=== PATIENT | female | born 1965 | race Caucasian/White ===

== ENCOUNTER 2018-12-21 09:25 | Emergency (ER) | payer SELFPAY ==
[2018-12-21 10:07] VITALS: BP 127/76
--- NOTE | 2018-12-21 11:22 | UC ---
Back Pain HPI - HPI Summary HPI Summary: 53 y/o female presents to the urgent care c/o PT c/o sore lower back muscles, bilat but today on the R side. Pt states this started on 12/08 after 2 difficult transfers - pt is a home health aid. - History of Current Complaint Chief Complaint: UCBackPain Stated Complaint: BACK INJURY Time Seen by Provider: 12/21/18 10:53 Hx Obtained From: Patient Hx Last Menstrual Period: 3 years ago ?: No - Menopausal Onset/Duration: Gradual Onset, Lasting Days - 13 days, Still Present, Worse Since - last night Timing: Intermittent, Lasting Minutes Severity Initially: Moderate Severity Currently: Moderate Pain Intensity: 6 Pain Scale Used: 0-10 Numeric Back Pain: Is Discrete @ - RT side of lower back Character: Sharp - w/ certain movements, Spasmodic Aggravating Factor(s): Movement, Lifting, Bending Alleviating Factor(s): Rest, OTC Meds - took 1 tab of Aleve last night Associated Signs And Symptoms: Positive: Negative. 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 she felt pain in her lower back - Risk Factors AAA Risk Factors: Negative TAD Risk Factors: Negative Cauda Equina Risk Factors: Negative Epidural Abscess Risk Factors: Negative - Allergies/Home Medications Allergies/Adverse Reactions: Allergies Allergy/AdvReac Type Severity Reaction Status Date / Time No Known Allergies Allergy Verified 12/21/18 10:00 PMH/Surg Hx/FS Hx/Imm Hx Previously Healthy: Yes Other Endocrine History: Gilbert disease - Surgical History Surgical History: Yes Surgery Procedure, Year, and Place: , 1994 1995; Cleft Palate Repairs - with revisions - Family History Known Family History: Positive: Hypertension Family History: Cancer - Social History Alcohol Use: None Substance Use Type: None Smoking Status (MU): Never Smoked Tobacco - Immunization History Most Recent Influenza Vaccination: Not the Season Physical Exam Vital Signs: Initial Vital Signs Temp 97.5 F 12/21/18 10:01 Pulse 64 12/21/18 10:01 Resp 16 12/21/18 10:01 BP 127/76 12/21/18 10:01 Pulse Ox 100 12/21/18 10:01 Back Pain Course/Dx - Course Course Of Treatment: Lumboscaral X-ray ordered, Impression: No radiographic evidence for traumatic injury. #. Mild degenerative spondylosis and facet joint osteoarthritis. - Differential Dx/Diagnosis Differential Diagnosis/HQI/PQRI: Arthritis, Compressive Cord Syndrome, Herniated Disc, Renal Colic Provider Diagnosis: Acute back pain, Back strain, Spondylolysis of lumbar region, Osteoarthritis of lumbar spine Discharge - Sign-Out/Discharge Documenting (check all that apply): Patient Departure - d/c home All imaging exams completed and their final reports reviewed: Yes - Discharge Plan Condition: Stable Disposition: HOME Prescriptions: Cyclobenzaprine TAB* [Flexeril 10 MG TAB*] 10 mg PO TID PRN #30 tab PRN Reason: Spasms - Back Ibuprofen TAB* [Motrin TAB* 600 MG] 600 mg PO Q6H PRN #30 tab PRN Reason: back pain Patient Education Materials: Low Back Strain (ED), Degenerative Disc Disease ( ED) Forms: *Work Release Referrals: Dariel Botello MD [Primary Care Provider] - 3 Days Kiersten Adan Ae RN [Registered Nurse] - 3 Days Additional Instructions: 1- Please take Ibuprofen q6-8hrs prn PO as directed after meals for pain. Medrol dose fernando as directed to alleviate symptoms 2- Take Flexeril PO as directed for muscle spasm. Please do not drive while taking the medication. 3- Avoid strenuous exercise or heavy lifting. Wear a back support 4- Please call Spinal Nurse Navigator: Cyndie Adan: [phone] for further management of your Spondylolysis and Degenerative disc disease - Billing Disposition and Condition Condition: STABLE Disposition: Home
[2018-12-21] MEDS: Ibuprofen TAB* 600 MG PO ONE (12:18)
== END 2018-12-21 13:29 | disposition home or self-care (01) ==
LOC: UCEAST 09:25
DX: S39.012A Strain of muscle, fascia and tendon of lower back, initial encounter (principal); M54.5 Low back pain; M47.896 Other spondylosis, lumbar region; X58.XXXA Exposure to other specified factors, initial encounter; Y92.9 Unspecified place or not applicable
CPT/HCPCS: 72110; 99212; A9270-GY; G0463

== ENCOUNTER 2019-03-14 23:41 | Emergency (ER) | payer BC ==
--- NOTE | 2019-03-15 00:30 | ED ---
Palpitations / Dysrhythmia - HPI Summary HPI Summary: Pt is a 53 y/o F presenting to the ED with a chief complaint of palpitations initially onset 1 week ago. She states that she recently visited her system administration advisor who stated her heart function levels were normal but on the low side, which sent her into erratic anxiety. She reports some shakiness, palpitations that have since resolved, and feeling like it is difficult to form words. She denies CP, SOB, LE edema, or rash. - History of Current Complaint Chief Complaint: EDDysrhythmPalp Time Seen by Provider: 03/15/19 00:13 Hx Obtained From: Patient Onset/Duration: Sudden Onset, Lasting Days, Still Present Timing: Constant Severity Initially: Mild Severity Currently: Mild Character: Pounding Aggravating: Other - stress Alleviating: Nothing Associated Signs & Symptoms: Negative - Allergy/Home Medications Allergies/Adverse Reactions: Allergies Allergy/AdvReac Type Severity Reaction Status Date / Time No Known Allergies Allergy Verified 03/14/19 23:45 PMH/Surg Hx/FS Hx/Imm Hx Previously Healthy: Yes Endocrine/Hematology History: Reports: Hx Thyroid Disease - "sluggish" Denies: Hx Diabetes Cardiovascular History: Reports: Other Cardiovascular Problems/Disorders - ANXIETY, PANIC ATTACKS, LEFT BUNDLE BRANCH BLOCK Denies: Hx Hypertension Respiratory History: Denies: Hx Asthma, Hx Chronic Obstructive Pulmonary Disease (COPD) GI History: Denies: Hx Ulcer - Cancer History Hx Chemotherapy: No Hx Radiation Therapy: No - Surgical History Surgery Procedure, Year, and Place: , 1994 1995; Cleft Palate Repairs - with revisions Infectious Disease History: No Infectious Disease History: Denies: Hx Hepatitis, Hx Human Immunodeficiency Virus (HIV), Traveled Outside the [place] in Last 30 Days - Family History Known Family History: Positive: Hypertension Family History: Cancer - Social History Alcohol Use: None Hx Substance Use: No Substance Use Type: Reports: None Hx Tobacco Use: No Smoking Status (MU): Never Smoked Tobacco Review of Systems Positive: Palpitations. Negative: Chest Pain Negative: Shortness Of Breath Positive: Other - shakiness. Negative: Edema Negative: Rash Neurological: Other - difficult to form words Positive: Anxious All Other Systems Reviewed And Are Negative: Yes Physical Exam - Summary Physical Exam Summary: Constitutional: Well-developed, Well-nourished, Alert. (-) Distressed Skin: Warm, Dry HENT: Normocephalic; Atraumatic Eyes: Conjunctiva normal Neck: Musculoskeletal ROM normal neck. (-) JVD, (-) Stridor, (-) Tracheal deviation Cardio: Rhythm regular, rate normal, Heart sounds normal; Intact distal pulses; The pedal pulses are 2+ and symmetric. Radial pulses are 2+ and symmetric. Pulmonary/Chest wall: Effort normal. (-) Respiratory distress, (-) Wheezes, (-) Rales Abd: Soft, (-) tenderness, (-) Distension, (-) Guarding, (-) Rebound Musculoskeletal: (-) Edema Neuro: Alert, Oriented x3 Psych: Mood and affect Normal Triage Information Reviewed: Yes Vital Signs On Initial Exam: Initial Vitals Temp Pulse Resp BP Pulse Ox 98.7 F 59 16 164/89 100 03/14/19 23:43 03/14/19 23:43 03/14/19 23:43 03/14/19 23:43 03/14/19 23:43 Vital Signs Reviewed: Yes Diagnostics - Vital Signs Vital Signs Temp Pulse Resp BP Pulse Ox 03/14/19 23:43 98.7 F 59 16 164/89 100 - Laboratory Result Diagrams: 03/15/19 00:56 Lab Statement: Any lab studies that have been ordered have been reviewed, and results considered in the medical decision making process. - EKG 2348 Cardiac Rate: Bradycardia - 59bpm EKG Rhythm: Sinus Bradycardia ST Segment: Non-Specific Ectopy: None Summary of EKG Findings: EKG at 2348 shows sinus bradycardia at 59bpm with old LBBB and old nonspecific T wave abnormalities. Negative Scarbossa. Course/Dx - Course Course Of Treatment: Pt is a 53 y/o F presenting to the ED with a chief complaint of palpitations initially onset 1 week ago. She states that she recently visited her system administration advisor who stated her heart function levels were normal but on the low side, which sent her into erratic anxiety. She reports some shakiness, palpitations that have resolved, and feeling like it is difficult to form words. She denies CP, SOB, LE edema, or rash. EKG at 2348 shows sinus bradycardia at 59bpm with old LBBB and old nonspecific T wave abnormalities. Negative Scarbossa. Pt's lab results are WNL. She will be d/c' ed with dx including anxiety and palpitations which resolved FAMILY NURSE. - Diagnoses Provider Diagnoses: Anxiety, Palpitations Discharge - Sign-Out/Discharge Documenting (check all that apply): Patient Departure Patient Received Moderate/Deep Sedation with Procedure: No - Discharge Plan Condition: Stable Disposition: HOME Patient Education Materials: Heart Palpitations (ED), Anxiety (ED) Referrals: Kiesrten Mcarthur MD [Primary Care Provider] - - Billing Disposition and Condition Condition: STABLE Disposition: Home - Attestation Statements Document Initiated by Scribe: Yes Documenting Scribe: Rose Garcia Provider For Whom Scribe is Documenting (Include Credential): Asim Kirk MD. Scribe Attestation: Rose Gilmore scribed for Asim Kirk MD. on 03/15/19 at 0508. Scribe Documentation Reviewed: Yes Provider Attestation: The documentation as recorded by the scribe, Rose Garcia accurately reflects the service I personally performed and the decisions made by me, Asim Kirk MD. Status of Scribe Document: Viewed
[2019-03-15 01:22] LABS: BUN/Creatinine Ratio 22.9 (8-20); Calcium 9.7 mg/dL (8.6-10.3); EGFR African American 87.7 (>60); EGFR Non-African American 72.5 (>60); Potassium 3.5 mmol/L (3.5-5.0)
[2019-03-15 02:16] VITALS: BP 122/73
== END 2019-03-15 01:52 | disposition home or self-care (01) ==
LOC: ED 23:41
DX: F41.9 Anxiety disorder, unspecified (principal); R00.2 Palpitations; R00.1 Bradycardia, unspecified; I44.7 Left bundle-branch block, unspecified
CPT/HCPCS: 36415; 80048; 83735; 84484; 93005; 99283

== ENCOUNTER 2019-09-08 07:54 | Emergency (ER) | payer BC ==
--- OUTSIDE RECORDS SUMMARY | 2019-09-08 08:00 | XMS REPORT | Continuity of Care Document ---
:1965 External Reference #:[id number] Author Problems Active Problems Provider Date Bundle branch block Onset: 03/25/2019 Left bundle branch block Martin Darden MD Onset: 07/17/2019 Syncope Martin Darden MD Onset: 07/17/2019 Cleft palate Onset: 03/25/2019 Irregular sleep-wake pattern Martin Darden MD Onset: 07/17/2019 Note: Neg sleep study Apr 2019 Gilbert's syndrome Martin Darden MD Onset: 07/17/2019 Anxiety Martin Darden MD Onset: 07/17/2019 Previous cleft palate repair Martin Darden MD Onset: 07/17/2019 Benign essential hypertension Martin Darden MD Onset: 07/17/2019 Palpitations Martin Darden MD Onset: 07/21/2019 Inactive Problems Allergic disposition Onset: 03/25/2019 Inactive: 03/25/2019 Anxiety Onset: 03/25/2019 Inactive: 03/25/2019 Social History Type Date Description Comments Sex Unknown Allergies, Adverse Reactions, Alerts Description No Information Available Medications Active Medications SIG Qnty Indications Ordering Provider Date Doxycycline Hyclate 2 tabs by mouth 2caps R21 SAFIA Osorio 05/26/2019 100mg twice a day once Capsules Lisinopril 1/2 tab by Unknown 2.5mg Tablets mouth every day Immunizations CPT Code Status Date Vaccine Lot # [id number] Given 05/26/2019 Flu < 65 years [id number] Vital Signs Date Vital Result Comment 05/26/2019 9:49am BP Systolic 132 mmHg BP Diastolic 78 mmHg Weight 123.00 lb Heart Rate 62 /min Body Temperature 97.9 F O2 % BldC Oximetry 98 % 03/25/2019 10:46am BP Systolic 110 mmHg Height 60.25 inches 5'0.25" Weight 129.00 lb Heart Rate 64 /min Body Temperature 98.1 F O2 % BldC Oximetry 98 % BMI (Body Mass Index) 24.98 kg/m2 Results Test Acquired Date Facility Test Result H/L Range Note Laboratory test 08/17/2019 [facility] Cytology SEE RESULT [address] [place] [address] [phone] Anion Gap 03/15/2019 N2N/CCD Import Anion Gap 8 mmol/L 2-11 mmol/L BUN 03/15/2019 N2N/[facility]D Import BUN 19 mg/dL 6-24 mg/dL BUN/Creat Ratio 03/15/2019 N2N/CCD Import BUN/Creat Ratio 22.9 _ High 8- 20 Calcium 03/15/2019 N2N/CCD Import Calcium 9.7 mg/dL 8.6-10.3 mg/dL Chloride 03/15/2019 N2N/CCD Import Chloride 108 mmol/L 101-111 mmol/L Co2 03/15/2019 N2N/CCD Import Co2 24 mmol/L 22-32 mmol/L Creatinine 03/15/2019 N2N/CCD Import Creatinine 0.83 mg/dL 0.51-0.95 mg/dL GFR Afr Amer 03/15/2019 N2N/CCD Import GFR Afr Amer 87.7 _ >60 GFR Non Afr 03/15/2019 N2N/CCD Import GFR Non Afr 72.5 _ >60 Amer Amer Glucose 03/15/2019 N2N/CCD Import Glucose 108 mg/dL High 70-100 mg/dL Magnesium 03/15/2019 N2N/CCD Import Magnesium 2.0 mg/dL 1.9-2.7 mg/dL Potassium 03/15/2019 N2N/CCD Import Potassium 3.5 mmol/L 3.5-5.0 mmol/L Sodium 03/15/2019 N2N/CCD Import Sodium 140 mmol/L 135-145 mmol/L Troponin 03/15/2019 N2N/CCD Import Troponin 0.00 ng/mL <0.04 ng/mL 1 SEE RESULT BELOW Name: CELIA BOURGEOIS : [address]: Jennyfer Larsen MD Acct: [id number] Unit: [id number] AGE: 54 Location: [facility] Re08/17/19 SEX: F Status: REG REF SPEC: [id number] KEISHA: 08/17/19-134 [facility] DR: Jennyfer Larsen MD REQ: [id number] RECD: 08/17/19 STATUS: LI MON DR: Kiersten Mcarthur MD _ ORDERED: TP IMAGE ANALYS, HPV/Thin Prep COMMENTS: [id number] FINAL DIAGNOSIS Negative for Intraepithelial lesion or Malignancy HPV RESULTS Date Time Test Result Flag (u) Normal Range 08/17/19 1344 HPV MEENU Negative Negative The high-risk HPV types detected by the assay include: 16, 18, 31, 33, 35, 39, 45, 51, 52, 56, 58, 59, 66, and 68. SPECIMEN(S) RECEIVED A. Ectocervical/Endocervical CYTOLOGY ADEQUACY Specimen Adequacy: Satisfactory of evaluation Transformation zone component not identified CONTINUED ON NEXT PAGE DEPARTMENT OF PATHOLOGY, [address] [place] [address] Mahesh Luna M.D. Director [facility] # [id number] CYTOLOGY PATIENT INFORMATION Patient Information: HPV: High risk HPV RNA testing regardless of pap results. Actual Specimen Date: 08/17/19 LMP If Unknown: 2015 Date of Last Specimen: 10/09/17 ?: Y Signed by and Reported on: LAUREN Pierce(ASCP) [id number] This Pap test was evaluated with the assistance of the ShoutEmPrep Test Imaging System. Due to cytologic findings at the housing grant analyst microscope, comprehensive manual rescreening by a [employer] may be required. The Pap Smear is a screening test designed to aid in the detection of premalignant and malignant conditions of the uterine cervix. It is not a diagnostic procedure and should not be used as the sole means of detecting cervical cancer. Both false- positive and false- negative reports do occur. Depending on your risk status, a Pap smear should be obtained and evaluated every 1-3 years. END OF REPORT DEPARTMENT OF PATHOLOGY, [address] [place] [address] Mahesh Luna M.D. Director [facility] # [id number] Procedures Date Code Description Status 03/25/2019 98788 Brief Emotional/Behav Assessment W/ Scoring Doc Per Completed Standard Inst Medical Devices Description No Information Available Encounters Type Date Location Provider Dx Diagnosis Office Visit 05/26/2019 10:15a [facility] SAFIA Osorio R21 Rash and other nonspecific skin eruption S20.462A Insect bite (nonvenomous) of left back wall of thorax, init Z23 Encounter for immunization Assessments Date Code Description Provider 05/26/2019 R21 Rash and other nonspecific skin eruption SAFIA Osorio 05/26/2019 S20.462A Insect bite (nonvenomous) of left back wall of SAFIA Osorio thorax, initial encounter 05/26/2019 Z23 Encounter for immunization SAIFA Osorio Plan of Treatment No Information Available Functional Status Description No Information Available Mental Status Description No Information Available Referrals Description No Information Available
--- OUTSIDE RECORDS SUMMARY | 2019-09-08 08:00 | XMS REPORT | Continuity of Care Document ---
:1965 External Reference #:[id number] Author Name Lorena Loza DNP, RN, PRINTED CIRCUIT BOARD PCB DESIGNER-BC (transmitted by agent of provider Eli Peace) Address [address], [address] [place] [address] Care Team Providers Name Role Phone Kiersten Mcarthur M.D. - Family Care Team Information Product Blending Supervisor Medicine Problems Active Problems Provider Date Left bundle branch block Jerel Alcala M.D. Onset: 04/14/2013 Syncope and collapse Jerel Alcala M.D. Onset: 04/14/2013 Sinus node dysfunction Jerel Alcala M.D. Onset: 04/14/2013 Social History Type Date Description Comments Sex Unknown Tobacco Use Start: Unknown Never Smoked Cigarettes ETOH Use Denies alcohol use Recreational Drug Use Denies Drug Use Tobacco Use Start: Unknown Patient has never smoked Smoking Status Reviewed: 08/05/19 Patient has never smoked Exercise Type/Frequency Exercises regularly 3-4 times a week, walking 1 mile Allergies, Adverse Reactions, Alerts Description No Known Drug Allergies Medications Active Medications SIG Qnty Indications Ordering Provider Date Vitamin D High once a day 90caps Other Ordering 08/04/2019 Potency Provider 25mcg (1000 Ut) Capsules Lisinopril 1/2 tablet by 90tabs I42.9 Madeline Condon NP 04/22/2019 2.5mg mouth every day Tablets [place]-3 Fish Oil take 1 tab by Unknown 03/20/2019 1000mg mouth daily. Capsules History Medications Zolpidem Tartrate 1 tab by mouth 1tabs Lorena Loza, 06/15/2019 - 5mg night of study ZENY MOREIRA, PR[employer]ED [employer] PCB DESIGNER-BC 08/04/2019 Tablets for inability to sleep Womens Multivitamin 1 tab by mouth Unknown 04/11/2019 - daily 08/04/2019 Tablets Lisinopril 1/2 tablet by 30tabs I42.9 Madeline Condon NP 03/21/2019 - 2.5mg mouth every 05/02/2019 Tablets Thursday, and Thursday ( 3 times a week) Immunizations Description No Information Available Vital Signs Date Vital Result Comment 08/05/2019 9:32am Height 60 inches 5'0" Weight 124.00 lb Heart Rate 61 /min BP Systolic 120 mmHg BP Diastolic 70 mmHg O2 % BldC Oximetry 98 % BMI (Body Mass Index) 24.2 kg/m2 05/20/2019 2:55pm Height 60 inches 5'0" Weight 123.25 lb Heart Rate 68 /min BP Systolic Sitting 122 mmHg LA, reg BP Diastolic Sitting 68 mmHg LA, reg BP Systolic Standing 118 mmHg LA< reg BP Diastolic Standing 68 mmHg LA< reg BMI (Body Mass Index) 24.1 kg/m2 Ejection Fraction 50%-55% 02/25/19 echo Results Test Acquired Date Facility Test Result H/L Range Note Basic Metabolic 04/20/2019 [facility] Sodium 142 mmol/L Normal 135-145 Panel [address] [place] [address] [phone] Potassium 4.0 mmol/L Normal 3.5-5.0 Chloride 108 mmol/L Normal 101-111 Co2 Carbon Dioxide 30 mmol/L Normal 22-32 Anion Gap 4 mmol/L Normal 2-11 Glucose 86 mg/dL Normal 70-100 Blood Urea Nitrogen 16 mg/dL Normal 6-24 Creatinine 0.73 mg/dL Normal 0.51-0.95 BUN/Creatinine Ratio 21.9 High 8-20 Calcium 9.5 mg/dL Normal 8.6-10.3 Egfr Non- 83.7 >60 Egfr 101.3 >60 1 1 Because ethnic data is not always readily available, this report includes an eGFR for both -Americans and non- Americans. The National Kidney Disease Education Program (NKDEP) does not endorse the use of the MDRD equation for patients that are not between the ages of 18 and 70, are , have extremes of body size, muscle mass, or nutritional status, or are non- or non-. According to the National Kidney Foundation, irrespective of diagnosis, the stage of the disease is based on the level of kidney function: Stage Description GFR(mL/min/1.73 m(2)) 1 Kidney damage with normal or decreased GFR 90 2 Kidney damage with mild decrease in GFR 60-89 3 Moderate decrease in GFR 30-59 4 Severe decrease in GFR 15-29 5 Kidney failure <15 (or dialysis) Procedures Date Code Description Status 07/21/2019 99170 Polysomnography Sleep Staging 4+ Parameters Completed 05/20/2019 13766 Sleep Study Unattended,HRT Rate,Oxygen Sat,Resp Completed Effort/Airflow 03/21/2019 68282 Holter Monitor Review (24 hr)dr guzman & interp only Completed 03/16/2019 06038 ECG Monitor/Recording W/Visual Superimposition Scanning Completed 02/25/2019 79684 ECHO Transthoracic, Real-Time 2D With Doppler And Color Completed Flow 02/25/2019 34574 ECHO Transthoracic, Real-Time 2D With Doppler And Color Completed Flow Medical Devices Description No Information Available Encounters Type Date Location Provider Dx Diagnosis Office Visit 05/20/2019 [facility] Madeline Condon NP I10 Essential (primary) 3:00p hypertension I42.9 Cardiomyopathy, unspecified I27.20 Pulmonary hypertension, unspecified Office Visit 05/13/2019 2:30p [facility] G47.9 Sleep disorder, [facility] unspecified Financial Services Representative R53.83 Other fatigue Office Visit 04/22/2019 1:00p [facility] Madeline Condon, I10 Essential (primary) Of Financial Services Representative HOT HEAD MACHINE OPERATOR hypertension I42.9 Cardiomyopathy, unspecified I36.1 Nonrheumatic tricuspid (valve) insufficiency I27.20 Pulmonary hypertension, unspecified Office Visit 04/11/2019 8:30a [facility] Nurse Visit I10 Essential (primary) cc hypertension Office Visit 03/21/2019 2:30p [facility] Madeline I36.1 Nonrheumatic JOSE Condon tricuspid (valve) insufficiency I42.9 Cardiomyopathy, unspecified I34.0 Nonrheumatic mitral (valve) insufficiency I44.7 Left bundle-branch block, unspecified Assessments Date Code Description Provider 08/05/2019 G47.33 Obstructive sleep apnea (adult) Lorena Loza DNP, RN, (pediatric) [facility] 08/05/2019 R53.83 Other fatigue Lorena Loza DNP RN, [facility] 08/05/2019 G47.01 Insomnia due to medical condition Lorena Loza DNP, RN , [facility] 07/21/2019 G47.33 Obstructive sleep apnea (adult) Jeimy Fine MD (pediatric) 05/20/2019 R06.83 Snoring Jeimy Fine MD 05/20/2019 I10 Essential (primary) hypertension Madeline Thuman, HOT HEAD MACHINE OPERATOR 05/20/2019 I42.9 Cardiomyopathy, unspecified Madelien Thuman, HOT HEAD MACHINE OPERATOR 05/20/2019 I27.20 Pulmonary hypertension, unspecified Madeline Thuman, HOT HEAD MACHINE OPERATOR 05/13/2019 G47.9 Sleep disorder, unspecified Jeimy Fine MD 05/13/2019 R53.83 Other fatigue Jeimy Fine MD 04/22/2019 I10 Essential (primary) hypertension Madeline Thuman, HOT HEAD MACHINE OPERATOR 04/22/2019 I42.9 Cardiomyopathy, unspecified Madeline Thuman, HOT HEAD MACHINE OPERATOR 04/22/2019 I36.1 Nonrheumatic tricuspid (valve) Madeline Thuman, HOT HEAD MACHINE OPERATOR insufficiency 04/22/2019 I27.20 Pulmonary hypertension, unspecified Madeline Thuman, HOT HEAD MACHINE OPERATOR 04/11/2019 I10 Essential (primary) hypertension Nurse Visit cc 03/21/2019 I42.9 Cardiomyopathy, unspecified Jerel Alcala M.D. 03/21/2019 I47.1 Supraventricular tachycardia Jerel Alcala M.D. 03/21/2019 I36.1 Nonrheumatic tricuspid (valve) Madeline Thuman, HOT HEAD MACHINE OPERATOR insufficiency 03/21/2019 I42.9 Cardiomyopathy, unspecified Madeline Thuman, HOT HEAD MACHINE OPERATOR 03/21/2019 I34.0 Nonrheumatic mitral (valve) Madeline Thuman, HOT HEAD MACHINE OPERATOR insufficiency 03/21/2019 I44.7 Left bundle-branch block, unspecified Madeline Thuman, HOT HEAD MACHINE OPERATOR 03/16/2019 I42.9 Cardiomyopathy, unspecified Nurse Visit IC 03/16/2019 I47.1 Supraventricular tachycardia Nurse Visit IC 02/25/2019 I42.8 Other cardiomyopathies Jerel Alcala M.D. 02/25/2019 I42.8 Other cardiomyopathies [facility] Schedule Plan of Treatment Future Appointment(s):09/30/2019 11:15 am - Lorena Loza DNP, RN, PRINTED CIRCUIT BOARD PCB DESIGNER-BC at [facility]08/05/2019 - Lorena Loza DNP, RN, PRINTED CIRCUIT BOARD PCB DESIGNER- BCG47.33 Obstructive sleep apnea (adult) (pediatric)Follow up:6 weeks 45 minRecommendations:Sleep apnea to start PAP at 4-8 cm Review of sleep study in detail. Review of risks of untreated sleep apnea including cardiovascular events: rhythm irregularities, heart attack, stroke; gastro esophageal reflux disease (GERD); diabetes; anxiety, depression; high blood pressure; accidents ( machineryand automobile) Recommendation for PAP other treatment modalities NON- PAP including oral appliance/mandibular advancement device, positional strategies , and surgery discussed. Referral for PAP device to be sent to [facility] phone: [phone] Equipment appointment will take about 45 minutes, the DME provider will call you within 5 days to set you up for the device. If you do nothear from them call the Sleep Center. The mask will have a 30-day guarantee, if you have mask problems call the DME provider to have a fitting for a different mask. Need distilled water for humidifier CPAP mask and tubing Cleaning Wipe off mask daily (baby wipe-no scent, or warm water) Clean mask, tubing, filter, and water chamber weekly in mild no scent dish soap and water. Hang to dry. If you have problems with the air pressure call the sleep center and speak to a nurse. If you have any further questions, please call the [facility] at [phone]. If you have any sleepiness while driving you MUST avoid operating a vehicle or machinery.R53.83 Other fatigueRecommendations:Should improve with [id number] Insomnia due to medical conditionFollow up:6 weeks 45 minRecommendations:Will address if needed at next appointment. Keep the sleep diary Review sleep hygiene tips and correct what you need to. Wear CPAP to reduce fragmented sleep. Functional Status Description No Information Available Mental Status Description No Information Available Referrals Refer to Reason for Referral Status Appt Date Jeimy Fine MD Sent 05/20/[address] [place] [phone]
[2019-09-08 08:05] VITALS: BP 137/82
--- NOTE | 2019-09-08 08:54 | UC ---
General HPI - HPI Summary HPI Summary: CHIEF COMPLAINT: NEAR FAINT HPI: This is a 54 y/o female who comes to the [facility] concerned about her CPAP readings (patient states it's a relatively new machine), and an episode of throwing her head back and becomng briefly dizzy. Patient denies vertigo symptoms, and states that she didn't faint. In the [facility], patient states, "I feel OK." Patient has a history of LBBB, palpitations and fatigue. Patient denies chest pain, shortness of breath or neurological disturbance. VITAL SIGNS REVIEWED. Within normal limits unless noted here. NURSES NOTE REVIEWED. "using a cpap machine which had a weird reading and arrives here with feeling funky all night and lightheaded." - History of Current Complaint Chief Complaint: UCGeneralIllness Stated Complaint: LIGHTHEADED Time Seen by Provider: 09/08/19 08:51 Hx Obtained From: Patient Hx Last Menstrual Period: 3 years ago Pain Intensity: 0 - Allergy/Home Medications Allergies/Adverse Reactions: Allergies Allergy/AdvReac Type Severity Reaction Status Date / Time No Known Allergies Allergy Verified 09/08/19 08:05 Home Medications: Home Medications lisinopriL [Lisinopril 2.5 MG-] 1 tab PO DAILY 09/08/19 [History Confirmed 09/08] PMH/Surg Hx/FS Hx/Imm Hx Previously Healthy: Yes Cardiovascular History: Other - LBBB - Surgical History Surgical History: Yes Surgery Procedure, Year, and Place: , 1994 1995; Cleft Palate Repairs - with revisions - Family History Known Family History: Positive: Hypertension Family History: Cancer - Social History Occupation: Employed Part-time Lives: With Family Alcohol Use: None Substance Use Type: None Smoking Status (MU): Never Smoked Tobacco - Immunization History Most Recent Influenza Vaccination: Not the 2017/2018 Season Review of Systems All Other Systems Reviewed And Are Negative: Yes Constitutional: Positive: Negative Skin: Positive: Negative Respiratory: Negative: Negative Cardiovascular: Positive: Negative Gastrointestinal: Negative: Negative Genitourinary: Negative: Negative Neurological/Mental Status: Negative: Other - brief dizziness, near faint Is Patient Immunocompromised?: No Physical Exam - Summary Physical Exam Summary: Appearance: The patient is well-appearing, is in no pain or distress, and is well-nourished. Eyes: Conjunctiva are clear. Pupils are equal and reactive to light and accommodation. Extra ocular muscle movement is intact. ENT: The hearing is grossly normal, the pharynx is normal, and the TMs are normal. There is no muffled or hoarse voice. No stridor. Neck: The neck is supple and there is no lymphadenopathy. Respiratory: The chest is non-tender to palpation and without crepitus. The lungs are clear, there are normal breath sounds, and there is no respiratory distress. No wheezes, rales or rhonchi. Cardiovascular: Heart sounds reveal a regular rate and rhythm. There are no clicks, rubs or murmurs. There are no carotid bruits or thrills. Circulation is grossly intact. Abdomen: The abdomen is soft and nontender. There is no organomegaly. Bowel sounds are present and within normal limits. No point tenderness at McBurneys point. No CVA tenderness. Musculoskeletal: Strength is intact. The patient moves all extremities. Neurological: The patient is alert. Motor and sensory are examination grossly intact. Speech is normal. Psychological: The patient displays age appropriate behavior, and is conversant. GCS=15. Skin: Negative for rashes. Triage Information Reviewed: Yes Vital Signs: Initial Vital Signs Temp 98 F 09/08/19 08:01 Pulse 66 09/08/19 08:01 Resp 16 09/08/19 08:01 BP 137/82 09/08/19 08:01 Pulse Ox 100 09/08/19 08:01 Vital Signs Reviewed: Yes Course/Dx - Course Course Of Treatment: This is a 54 y/o female who comes to the [facility] concerned about her CPAP readings (patient states it's a relatively new machine), and an episode of throwing her head back and becomng briefly dizzy. Patient denies vertigo symptoms, and states that she didn't faint. In the [facility], patient states, "I feel OK." Patient has a history of LBBB, palpitations and fatigue. Patient denies chest pain, shortness of breath or neurological disturbance. Physical examination was within normal limits. Diagnosis is vasovagal near syncope, trainsient, now resolved. Patient will follow up with her physician and call to maintain her CPAP machine. - Diagnoses Provider Diagnosis: Vasovagal near syncope Discharge ED - Sign-Out/Discharge Documenting (check all that apply): Patient Departure All imaging exams completed and their final reports reviewed: No Studies - Discharge Plan Condition: Stable Disposition: HOME Patient Education Materials: Syncope (DC), Shortness of Breath (ED) Referrals: Kiersten Mcarthur MD [Primary Care Provider] - Additional Instructions: WE DISCUSSED: PLEASE SEEK CARE AT THE EMERGENCY DEPARTMENT IF SYMPTOMS WORSEN OR IF NEW SYMPTOMS DEVELOP. FOLLOW UP WITH YOUR PRIMARY CARE PHYSICIAN IF CONDITION CONTINUES BEYOND 3 DAYS WITHOUT IMPROVEMENT. YOUR DIAGNOSIS IS: DIZZINESS, NEAR FAINT; SHORTNESS OF BREATH YOUR PRESCRIPTION RECOMMENDATION IS: MOVE SLOWLY WHEN STRAIGHTENING UP; CHECK YOUR CPAP MACHINE; FOLLOW UP WITH YOUR DOCTOR OTHER INSTRUCTIONS: Your vital signs all look good; you don't have symptoms now ; your heart beat is steady. FOR PAIN AND/OR SLEEP: For pain: Ibuprofen (Motrin and other brand names) 400-600mg PLUS acetaminophen (Tylenol and other brand names) 500mg - 1000mg every 8 hours. - Billing Disposition and Condition Condition: STABLE Disposition: Home
== END 2019-09-08 09:15 | disposition home or self-care (01) ==
LOC: UCEAST 07:54
DX: R55 Syncope and collapse (principal); R53.83 Other fatigue; R00.2 Palpitations; R42 Dizziness and giddiness; I44.7 Left bundle-branch block, unspecified
CPT/HCPCS: 99211; G0463